=== PATIENT | male | born 1985 | race Caucasian/White ===

== ENCOUNTER 2024-07-25 16:37 | Emergency (ER) | payer OTHER, SELFPAY ==
[2024-07-25 16:44] VITALS: BP 134/97
[2024-07-25 17:06] LABS: Urine Albumin 1+ (Neg - Trace); Urine Bilirubin 1+ (Negative); Urine Character Very Cloudy (Clear); Urine Color Amber; Urine Glucose Negative (Negative); Urine Ketone Negative (Negative); Urine Leukocyte Trace (Negative); Urine Nitrite Negative (Negative); Urine Occult Blood 4+ (Negative); Urine Urobilinogen Negative (Neg - 1+)
[2024-07-25 17:07] LABS: % Basophils 0.9 % (0-2); % Eosinophils 1.3 % (0-6); % Immature Granulocytes 0.4 % (0-0.5); % Lymphocytes 41.9 % (20.5-51.1); % Monocytes 6.9 % (1.7-9.3); % Neutrophils 48.6 % (42.2-75.2); Absolute Basophils 0.1 10^3/uL (0-0.2); Absolute Eosinophils 0.1 10^3/uL (0-0.7); Absolute Lymphocytes 3.3 10^3/uL (1.2-3.4); Absolute Monocytes 0.5 10^3/uL (0.1-0.6); Absolute Neutrophils 3.8 10^3/uL (1.4-6.5); Hematocrit 47.8 % (39.0-52.0); Mean Corp Hgb Conc. 33.5 g/dL (33.0-37.0); Mean Corpuscular Hgb 30.2 pg (27.0-31.0); Mean Corpuscular Volume 90.2 fL (80.0-94.0); Mean Platelet Volume 9.9 fL (7.4-10.4); Nucleated Red Blood Cells % 0 % (-); Platelet Count 295 10^3/uL (130-400); Red Cell Dist. Width 12.5 % (11.5-14.5); White Blood Cell Count 7.9 10^3/uL (4.8-10.8)
[2024-07-25 17:13] LABS: Urine Mucus Few; Urine Squamous Cell 0-2 /LPF (Few)
[2024-07-25 17:14] LABS: Urine Bacteria Many (Negative); Urine Red Blood Cell 50-60 /HPF (0-2); Urine White Cell 0-2 /HPF (0-5)
[2024-07-25 17:24] LABS: ALT (SGPT) 43 U/L (0-50); AST (SGOT) 29 U/L (17-59); Albumin 4.9 g/dl (3.5-5.0); Alkaline Phosphatase 59 U/L (38-126); Blood Urea Nitrogen 20 mg/dl (9-20); Calcium 9.7 mg/dl (8.4-10.2); Carbon Dioxide 29 mmol/L (22-30); Chloride 101 mmol/L (98-107); Glucose 93 mg/dl (70-99); Potassium 5.2 mmol/L (3.5-5.1); Sodium 139 mmol/L (135-145); Total Bilirubin 0.8 mg/dl (0.2-1.3); Total Protein 8.1 g/dl (6.3-8.2); eGFR > 60.00
--- NOTE | 2024-07-25 18:20 | ED.GENMED ---
History of Present Illness
General
Chief Complaint: Flank Pain
Source: patient
Exam Limitations: none
Time Seen by Provider: 07/25/24 17:08
Nursing documentation reviewed up to this point in time: agreed with
History of Present Illness
History of Present Illness:
Patient to ED with complaint of left flank pain. Symptoms started this afternoon. He has a history of kidney stones and this pain is exactly the same. Brought self to ED for eval. Denies fever/chills, n/v/d.
Past History
Past History
ED Past Medical History: Other (Kidney stones)
Review of Systems
Review of Systems
Allergies reviewed?: Yes
All Other Systems: ROS reviewed and negative except as documented in HPI and ROS
Constitutional: Reports no symptoms
ABD/GI: Reports no symptoms
: Reports flank pain
Musculoskeletal: Reports no symptoms
Skin: Reports no symptoms
Neurological: Reports no symptoms
Psychiatric: Reports no symptoms
Phy Exam
General Physical Exam
General Presentation: well appearing and no apparent distress
General age: appears stated age
General Skin: warm and dry
General Habitus: normal
General Mental: alert
Gastrointestinal Exam
Gastrointestinal Exam: normal bowel sounds, non tender, soft, no organomegaly, non distended and no cva tenderness
Musculoskeletal Exam
Musculoskeletal Exam: full ROM and neuro vasc intact
Skin Exam
Skin Exam: normal color, warm/dry and no rash
Psychiatric Exam
Psychiatric Exam: normal mood/affect
Course
Orders/Labs/Results
Orders:
Orders
07/25/24 16:59
Comprehensive Metabolic Panel Urgent
07/25/24 17:00
Complete Blood Count/With Diff Urgent
Urinalysis Reflex To Culture Urgent
Date Specimen was Collected: 07/25/24
Time Specimen was Collected: 16:46
Urine Microscopic Reflex Cult Urgent
Urine Culture Urgent
CYNTHIA Source: U
Specimen Description:
Date Specimen was Collected: 07/25/24
Time Specimen was Collected: 16:46
07/25/24 17:21
CT Abd/pel Without Iv Or Oral Urgent
Comment:
Reason For Exam: flank pain
07/25/24 18:35
Sulfamethox./Trimethoprim Ds [Bactrim Ds 800 mg/160 mg] 1 tablet PO NOW STA
07/25/24 18:36
Sulfamethox./Trimethoprim Ds [Bactrim Ds 800 mg/160 mg] 1 tablet .ROUTE .STK-MED ONE
Abnormal Lab Results
07/25/24 07/25/24
16:59 17:00
Potassium 5.2 H mmol/L
(3.5-5.1)
Ur Occult Blood Reflex 4+ A
(Negative)
Urine Bilirubin 1+ A
(Negative)
Leukocyte Esterase Rfl Trace A
(Negative)
Urine RBC 50-60 A /HPF
(0-2)
Urine Bacteria (Reflex) Many A
(Negative)
Urine Albumin (Reflex) 1+ A
(Neg - Trace)
07/25/24 17:00
07/25/24 16:59
Vital Signs
Initial and Last Documented VS:
Initial Vital Signs
Temp Pulse Resp BP Pulse Ox
98.2 F 80 18 134/97 99
07/25/24 16:44 07/25/24 16:44 07/25/24 16:44 07/25/24 16:44 07/25/24 16:44
Last Documented Vital Signs
Temp Pulse Resp BP Pulse Ox
98.2 F 69 16 107/81 97
07/25/24 16:44 07/25/24 18:38 07/25/24 18:38 07/25/24 18:38 07/25/24 18:38
*Radiology
Radiology exam reviewed: radiology read reviewed
*Pulse Oximetry
Patient hypoxic: no
*Critical Care Note
Total Time (30-74mins, 75-104mins- exclusive of procedures): Not Applicable
Update Note
Update Note:
Patient to ED with complaint of left flank pain. Pain started this AM. Hx of kidney stones, all of which he has passed on own. States pain has lessened but is stilll present. Declines pain medications. Afebrile. No n/v in dept. Ct reveals 6mm
stone in left mid ureter with mild hydro. Will discharge home. He has flomax and pain meds at home and will resume. He is an active patient of Dr. Kerr. Will follow up in AM. Damaris issherronctions ons/s to return to ED and he is agreeable to
plan.
ED Attending Note
-
Portions of this chart may have been created with voice recognition software.� Occasional wrong word or��sound alike� substitutions may have occurred due to the inherent limitations of voice recognition software.
Discharge Plan
Departure
Patient Disposition: Home (Routine Discharge)
Date of Disposition: 07/25/24
Time of Disposition: 18:31
Patient with high blood pressure during this ER visit?: No
Condition: Good
Covid-19: Not Applicable
Discharge Problem:
Kidney stone
Instructions: Kidney Stones (DC)
Prescriptions:
New
sulfamethoxazole-trimethoprim [Bactrim DS] 800-160 mg tablet
1 tab PO BID Qty: 10 0RF
Referrals:
Andrea Kerr MD [Active] - Tomorrow
Marissa Fontaine CRNP [Family Provider] -
Activity Restrictions/Additional Instructions:
Return to the emergency department immediately for fever/chills, increasing pain, vomiting, or for any further concerns.
Interventions
Interventions:
*Risk Screen - Suicide Last Done: 07/25/24 16:44
*General Assessment Last Done: 07/25/24 16:44
*Neglect/Abuse Screening Last Done: 07/25/24 16:44
ED- Fall Risk Assessment Last Done: 07/25/24 18:41
*ED COVID-19 Vaccine History Last Done: 07/25/24 16:44
*Nursing Disposition Last Done: 07/25/24 18:45
YF-Qdmnsr-Mnwzfjvonk Assessment Last Done: 07/25/24 18:38
ED-Male Genitourinary Assessment Last Done: 07/25/24 18:38
Discharge Date and Time
Discharge Date/Time: 07/25/24 18:45
Print Language: IRISH
[2024-07-25 18:38] VITALS: BP 107/81; BMI 26.1
[2024-07-25] MEDS: BACTRIM DS 800 MG/160 MG 1 TABLET PO (18:42)
--- NOTE | 2024-07-25 19:03 | EDRN ---
Pt discharged by Rick Barrios RN not Roxann Sahni RN.
== END 2024-07-25 18:45 | disposition home or self-care (01) ==
LOC: EMR 16:37
PROVIDERS: EMERGENCY PHYSICIAN Emergency Medicine; FAMILY PHYSICIAN Nurse Practitioner Family
DX: N13.2 Hydronephrosis with renal and ureteral calculous obstruction (principal)
CPT/HCPCS: 99284; 74176; 80053; 81003; 81015; 85025; 87086

== ENCOUNTER → 2024-08-02 08:45 | Outpatient (REF) | payer OTHER, SELFPAY | LOC: CLAB 08:45 | PROVIDERS: ATTENDING PHYSICIAN Urology | DX: N20.0 Calculus of kidney (principal) | CPT/HCPCS: 82365 ==